=== PATIENT | female | born 1970 | race Caucasian/White ===

== ENCOUNTER → 2016-09-15 | Outpatient (CLI) | payer OTHER ==
--- NOTE | ~2016-09-15 | MR32 ---
[facility] A Service of [facility] & [facility] / [facility] RADIOLOGY TEXT RESULTS PATIENT: FLORENTIN DUMONT LOCATION: [facility] : 70 UNIT #: [id number] AGE: [address]: TEGAN SCHMITT SEX: F ORDER DR: [id number] [facility] [address] [place], [place] [address] [id number] O MR#: [id number] Acc #: [id number] NAME: FLORENTIN DUMONT : 1970 SEX: F STUDY DATE/TIME: 09/15/2016 8:39 UNIT: [facility] ROOM: STUDY DESCRIPTION: MR Cervical Wo Contrast Attending Physician: Tegan Schmitt M.D. Referring Physician: Tegan Schmitt M.D. Ordering Physician: Alma Rosa Not Listed Primary Care Physician: Viridiana Young A.P.R.N. [facility] REPORT This report is preliminary unless electronic signature is present. EXAM Cervical spine MRI, without contrast. HISTORY Cervical radiculopathy. History of neck and left shoulder pain, numbness, and tingling down to hand. Pain chronic, comes and goes. Present prior to 2006, also. No history of surgery or cancer. COMMENT MRI of the cervical spine was performed without contrast, using routine 1.5-T imaging technique. No prior study of the cervical spine. Sagittal alignment is normal. Mild intervertebral disc desiccation in general. Cervical cord is normal in size and signal intensity, and there is no Chiari I malformation. At C2-C3, no significant abnormality. At C3-C4, broad-based posterior disc protrusion, more prominent, right paramedian to posterolateral location. Mild flattening of the cord and very mild rightward canal stenosis. Also, mild [id number]-left-sided foraminal narrowing. At C4-C5, small central disc protrusion, but no canal stenosis or significant foraminal impingement. At C5-C6, mild facet degenerative change, left side, but no canal stenosis. Mild left foraminal narrowing. Minimal concentric disc bulging. At C6-C7, tiny central to right paramedian disc protrusion. No canal STS. [facility] A Service of [facility] & [facility] / [facility] RADIOLOGY TEXT RESULTS PATIENT: FLORENTIN DUMONT LOCATION: [facility] : 70 UNIT #: [id number] AGE: [address]: TEGAN SCHMITT SEX: F ORDER DR: stenosis or foraminal impingement. At C7-T1, no significant abnormality. IMPRESSION Relatively mild cervical degenerative changes, most significant appearing radiographically at C3-C4, where there is very mild canal stenosis. See [id number] discussion and correlate with symptoms. Dictated by... Portia Guzman M.D. THIS IS AN ELECTRONICALLY VERIFIED REPORT Portia Guzman M.D. at 09/15/2016 4:01 PM Nataliia TD: 09/15/2016 15:01 JOB #: [id number] MRI CENTER REPORT COPY
== END | disposition home or self-care (01) ==
LOC: CMRI 07:28
DX: M54.12 Radiculopathy, cervical region (principal); M54.2 Cervicalgia; G43.909 Migraine, unspecified, not intractable, without status migrainosus; M50.21 Other cervical disc displacement, high cervical region; M50.222 Other cervical disc displacement at C5-C6 level; M50.223 Other cervical disc displacement at C6-C7 level
CPT/HCPCS: 72141